=== PATIENT | female | born 1990 | race Caucasian/White ===

== ENCOUNTER 2017-02-05 18:23 | Emergency (ER) | payer BC ==
[2017-02-05] MEDS ORDERED: ONDANSETRON 4 MG TAB.RAPDIS PO ONE (20:00)
[2017-02-05] MEDS ORDERED: ONDANSETRON ODT 4 MG TAB (6 TAB/DSPK) PO PRN (20:00)
--- NOTE | 2017-02-05 21:03 | ER Document Report ---
ED General - General Chief Complaint: Vomiting Stated Complaint: DIZZY/VOMITING TRAVEL OUTSIDE OF THE [place] IN LAST 30 DAYS: No - HPI Patient complains to provider of: nausea vomiting Notes: Patient coming in for nausea vomiting. Patient states vomiting multiple times last night was drink some alcohol. Patient states I saw Rosalina she did have some streaks of blood in it. Patient otherwise states that she is feeling better now upon my evaluation was to be discharged home. Patient denies being . Denies any past medical history. Patient was offered Zofran a front however did not want to take it. Patient looks well nontoxic - Related Data Allergies/Adverse Reactions: No Known Allergies Allergy (Unverified 02/05/17 20:03) Past Medical History - Social History Smoking Status: Current Some Day Smoker Frequency of alcohol use: Occasional Drug Abuse: None Family History: Reviewed & Not Pertinent Renal/ Medical History: Denies: Hx Peritoneal Dialysis Review of Systems - Review of Systems Constitutional: No symptoms reported EENT: No symptoms reported Cardiovascular: No symptoms reported Respiratory: No symptoms reported Gastrointestinal: Nausea, Vomiting Genitourinary: No symptoms reported Female Genitourinary: No symptoms reported Musculoskeletal: No symptoms reported Skin: No symptoms reported Hematologic/Lymphatic: No symptoms reported Neurological/Psychological: No symptoms reported -: Yes All other systems reviewed and negative Physical Exam - Vital signs Vitals: Temp Pulse Resp BP Pulse Ox 98.3 F 67 18 126/60 H 99 02/05/17 18:31 02/05/17 18:31 02/05/17 18:31 02/05/17 18:31 02/05/17 18:31 Interpretation: Normal - General General appearance: Appears well, Alert - HEENT Head: Normocephalic, Atraumatic Eyes: Normal Pupils: PERRL - Respiratory Respiratory status: No respiratory distress Chest status: Nontender Breath sounds: Normal Chest palpation: Normal - Cardiovascular Rhythm: Regular Heart sounds: Normal auscultation Murmur: No - Abdominal Inspection: Normal Distension: No distension Bowel sounds: Normal Tenderness: Nontender Organomegaly: No organomegaly - Back Back: Normal, Nontender - Extremities General upper extremity: Normal inspection, Nontender, Normal color, Normal ROM , Normal temperature General lower extremity: Normal inspection, Nontender, Normal color, Normal ROM , Normal temperature, Normal weight bearing. No: Radames's sign - Neurological Neuro grossly intact: Yes Cognition: Normal Orientation: AAOx4 Basilio Coma Scale Eye Opening: Spontaneous [place] Coma Scale Verbal: Oriented Basilio Coma Scale Motor: Obeys Commands Basilio Coma Scale Total: 15 Speech: Normal Motor strength normal: LUE, RUE, LLE, RLE Sensory: Normal - Psychological Associated symptoms: Normal affect, Normal mood - Skin Skin Temperature: Warm Skin Moisture: Dry Skin Color: Normal Course - Re-evaluation Re-evalutation: 02/05/17 22:42 Patient did take Zofran and was able tolerate by mouth. Patient will be discharged home - Vital Signs Vital signs: Temp Pulse Resp BP Pulse Ox 97.8 F 76 16 110/65 100 02/05/17 21:25 02/05/17 21:25 02/05/17 21:25 02/05/17 21:25 02/05/17 21:25 Discharge - Discharge Clinical Impression: Nausea & vomiting Qualifiers: Vomiting type: unspecified Vomiting Intractability: unspecified Qualified Code( s): R11.2 - Nausea with vomiting, unspecified Condition: Good Disposition: HOME, SELF-CARE Instructions: Gastritis ([facility]) Additional Instructions: Take medication as prescribed return to the ER symptoms worsen. Prescriptions: Ondansetron [Zofran Odt 4 mg Tablet] 1 - 2 tab PO Q4H PRN #20 tab.rapdis PRN Reason: For Nausea/Vomiting Forms: Return to Work
[2017-02-05 21:27] VITALS: BP 110/65
== END 2017-02-05 21:25 | disposition home or self-care (01) ==
LOC: ER 18:23
DX: R11.2 Nausea with vomiting, unspecified (principal); R42 Dizziness and giddiness; F17.200 Nicotine dependence, unspecified, uncomplicated
CPT/HCPCS: 99283; 82962; 81025; S0119